=== PATIENT | male | born 1970 | race Caucasian/White ===

== ENCOUNTER 2025-08-19 10:49 | Emergency (ER) | payer OTHER ==
[2025-08-19] MEDS: Fluorescein 1 MG Ophth Strip EYELF ONE (11:40)
[2025-08-19] MEDS: Tetracaine HCl/PF 0.5% 4 ML Bottle EYELF ONE (11:40)
== END 2025-08-19 11:55 | disposition home or self-care (01) ==
LOC: LB.ED 10:49
DX: S05.02XA Injury of conjunctiva and corneal abrasion without foreign body, left eye, initial encounter (principal); J45.909 Unspecified asthma, uncomplicated; X58.XXXA Exposure to other specified factors, initial encounter
CPT/HCPCS: 99283